=== PATIENT | female | born 1995 | race Caucasian/White ===

== ENCOUNTER 2016-12-17 22:12 | Inpatient (IN) | payer BC ==
[2016-12-17] MEDS ORDERED: Water For Irrigation,Sterile 1,000 ML Container IRR PRN (22:37)
[2016-12-17] MEDS ORDERED: Terbutaline 1 MG/ML SDV SUBCUT PRN (22:37)
[2016-12-17] MEDS ORDERED: Methylergonovine 0.2 MG/1 ML Amp IM PRN (22:37)
[2016-12-17] MEDS ORDERED: Sodium Chloride 0.9% 2.5 ML Syringe FLUSH PRN (22:37)
[2016-12-17] MEDS ORDERED: Sodium Chloride 0.9% 10 ML Syringe FLUSH PRN (22:37)
[2016-12-17] MEDS ORDERED: Carboprost Tromethamine 250 MCG/1 ML Amp IM PRN (22:37)
[2016-12-17] MEDS ORDERED: Lidocaine 1% 50 ML MDV INJECT PRN (22:37)
[2016-12-17] MEDS ORDERED: Misoprostol 200 MCG Tab PO PRN (22:37)
[2016-12-17] MEDS ORDERED: Nalbuphine 10 MG/1 ML Vial IVPUSH PRN (22:37)
[2016-12-17] MEDS ORDERED: Oxytocin/0.9 % Sodium Chloride 30 UNIT/500 ML BAG IV SCH ×2 (22:45)
[2016-12-17] MEDS: Lactated Ringers 1,000 ML IV SCH (23:05)
[2016-12-17] MEDS ORDERED: Misoprostol 25 MCG (1/4 of 100 MCG) Tab VAG ONE (23:30)
[2016-12-18] MEDS ORDERED: Misoprostol 25 MCG (1/4 of 100 MCG) Tab VAG PRN (03:30)
[2016-12-18] MEDS: Butorphanol 1 MG/ML SDV IVPUSH PRN ×2 (04:51→06:06)
[2016-12-18] MEDS: Lactated Ringers 1,000 ML IV SCH ×3 (07:12→08:50)
[2016-12-18] MEDS ORDERED: fentaNYL 100 MCG/2 ML SDV ONE (08:19)
[2016-12-18] MEDS ORDERED: Ropivacaine HCl/PF 100 ML ONE (08:20)
[2016-12-18] MEDS ORDERED: Ropivacaine 0.2% 2 MG/ML 20 ML SDV ONE (08:20)
--- NOTE | 2016-12-18 09:05 | PCM.PREANE ---
Preanesthetic Assessment - Anesthesia/Transfusion/Family Hx Anesthesia History: No Prior Anesthesia (Patient states she has never had surgery or anesthesia) Family History of Anesthesia Reaction: No Transfusion History: Prior Transfusion Without Reaction - Review of Systems General: No Symptoms Pulmonary: No Symptoms Cardiovascular: No Symptoms Gastrointestinal: No Symptoms Neurological: No Symptoms Other: Reports: None (Denies any personal or family hx of bleeding or clotting problems) - Physical Assessment Height: 1.7 m Weight: 92.986 kg ASA Class: 2 Mental Status: Alert & Oriented x3 Airway Class: Mallampati = 2 Dentition: Reports: Normal Dentition ROM/Head Extension: Full - Lab Values: Laboratory Last Values WBC 9.84 K/uL (4.0-11.0) 12/17/16 23: RBC 4.02 M/uL (4.30-5.90) L 12/17/16 23: Hgb 11.9 g/dL (12.0-16.0) L 12/17/16 23: Hct 35.5 % (36.0-46.0) L 12/17/16 23: MCV 88.3 fL (80.0-98.0) 12/17/16 23: MCH 29.6 pg (27.0-32.0) 12/17/16 23: MCHC 33.5 g/dL (31.0-37.0) 12/17/16 23: RDW Std Deviation 45.7 fl (28.0-62.0) 12/17/16 23:01 RDW Coeff of Jadyn 14 % (11.0-15.0) 12/17/16 23: Plt Count 243 K/uL (150-400) 12/17/16 23:01 MPV 10.10 fL (7.40-12.00) 12/17/16 23: Nucleated RBC % 0.0 /100WBC 12/17/16 23:01 Nucleated RBCs # 0 K/uL 12/17/16 23:01 Blood Type A POSITIVE 12/17/16 23: Antibody Screen NEGATIVE 12/17/16 23:01 - Allergies Allergies/Adverse Reactions: Allergies Allergy/AdvReac Type Severity Reaction Status Date / Time codeine Allergy Rash Verified 12/17/16 22:44 latex Allergy Swelling Verified 12/17/16 22:44 - Acknowledgements Anesthesia Type Planned: Epidural Pt an Appropriate Candidate for the Planned Anesthesia: Yes Alternatives and Risks of Anesthesia Discussed w Pt/Guardian: Yes Pt/Guardian Understands and Agrees with Anesthesia Plan: Yes PreAnesthesia Questionnaire - Past Health History Medical/Surgical History: Denies Medical/Surgical History HEENT History: Reports: None Cardiovascular History: Reports: None Respiratory History: Reports: None Gastrointestinal History: Reports: None Genitourinary History: Reports: None LINE ERECTOR History: Reports: , Spontaneous , Other (See Below) Other OB/BYN History: ovarian cysts Musculoskeletal History: Reports: None Neurological History: Reports: None Psychiatric History: Reports: None Endocrine/Metabolic History: Reports: None Hematologic History: Reports: Anemia, Iron Deficiency Immunologic History: Reports: None Oncologic (Cancer) History: Reports: None Dermatologic History: Reports: Eczema, Psoriasis Other Dermatologic History: random areas - Past Surgical History Female Surgical History: Reports: D&C - SUBSTANCE USE Smoking Status *Q: Former Smoker Tobacco Use Within Last Twelve Months: Cigarettes Days Per Week of Alcohol Use: 0 Recreational Drug Use History: No - HOME MEDS Home Medications: Home Meds Prenat Vit Comb.10/Iron/Fa/Dha [Vitafol-OB + DHA] 1 tab PO DAILY 08/17/15 [ History] Ferrous Sulfate [Iron] 12/17/16 [History] - CURRENT (IN HOUSE) MEDS Current Meds: Current Medications Butorphanol Tartrate (Stadol) 1 mg IVPUSH Q1H PRN PRN Reason: Pain Last Admin: 12/18/16 06:06 Dose: 1 mg Carboprost Tromethamine (Hemabate Ds) 250 mcg IM ASDIRECTED PRN PRN Reason: Post Hemorrhage Lactated Ringer's (Ringers, Lactated) 1,000 mls @ 150 mls/hr IV ASDIRECTED BRYNN Last Admin: 12/18/16 08:50 Dose: 150 mls/hr Oxytocin/Sodium Chloride (Oxytocin 30 Unit/500 Ml-Ns) 30 unit in 500 mls @ 999 mls/hr IV TITRATE BRYNN Oxytocin/Sodium Chloride (Oxytocin 30 Unit/500 Ml-Ns) 30 unit in 500 mls @ 2 mls/hr IV TITRATE BRYNN; 2 MUNITS/MIN PRN Reason: Protocol Lidocaine HCl (Xylocaine 1%) 50 ml INJECT .ONCE PRN PRN Reason: Laceration repair Methylergonovine Maleate (Methergine) 0.2 mg IM ASDIRECTED PRN PRN Reason: Post Hemorrhage Misoprostol (Cytotec) 200 mcg PO .ONCE PRN PRN Reason: Post Hemorrhage Misoprostol (Cytotec) 25 mcg VAG Q4H PRN PRN Reason: Cervical Ripening Nalbuphine HCl (Nubain) 10 mg IVPUSH Q1H PRN PRN Reason: Pain (severe 7-10) Sodium Chloride (Saline Flush) 10 ml FLUSH ASDIRECTED PRN PRN Reason: Keep Vein Open Sodium Chloride (Saline Flush) 2.5 ml FLUSH ASDIRECTED PRN PRN Reason: Keep Vein Open Sterile Water (Sterile Water For Irrigation) 1,000 ml IRR ASDIRECTED PRN PRN Reason: delivery Terbutaline Sulfate (Brethine) 0.25 mg SUBCUT ASDIRECTED PRN PRN Reason: Tacysystole Discontinued Medications Fentanyl (Sublimaze) Confirm Administered Dose 100 mcg .ROUTE .STK-MED ONE Stop: 12/18/16 08:20 Ropivacaine (Naropin 0.2%) Confirm Administered Dose 100 mls @ as directed .ROUTE .STK-MED ONE Stop: 12/18/16 08:21 Misoprostol (Cytotec) 25 mcg VAG ONETIME ONE Stop: 12/17/16 23:31 Last Admin: 12/17/16 23:56 Dose: 25 mcg Ropivacaine (Naropin 0.2%) Confirm Administered Dose 20 ml .ROUTE .STK-MED ONE Stop: 12/18/16 08:21
[2016-12-18] MEDS ORDERED: Ibuprofen 400 MG Tab PO PRN (12:04)
[2016-12-18] MEDS ORDERED: Bisacodyl 10 MG Supp RECTAL PRN (12:04)
[2016-12-18] MEDS ORDERED: Witch Hazel Medicated Pads 40/Jar TOP PRN (12:04)
[2016-12-18] MEDS ORDERED: Docusate Sodium 100 MG Cap PO PRN (12:04)
[2016-12-18] MEDS ORDERED: Acetaminophen 500 MG Tab PO PRN ×2 (12:04)
[2016-12-18] MEDS ORDERED: Benzocaine/Menthol 20%-0.5% Spray 78 GM Cannister TOP PRN (12:04)
[2016-12-18] MEDS ORDERED: Lanolin 100% Cream 7 GM Tube TOP PRN (12:04)
--- NOTE | 2016-12-18 18:18 | OR ---
SURGEON: Sofia Ghotra MD DATE OF PROCEDURE: 12/18/2016 PREOPERATIVE DIAGNOSES: 1. Postdates at 41 weeks and 1 day. 2. Postdates induction of labor. POSTOPERATIVE DIAGNOSES: 1. Postdates at 41 weeks and 1 day. 2. Postdates induction of labor. 3. Delivered. ANESTHESIA: Epidural. ESTIMATED BLOOD LOSS: 100 mL. DISPOSITION: Mother and baby are stable in Labor and Delivery room, bonding. COMPLICATIONS: None. FINDINGS: Female , weight pending at dictation, score of 8 and 9 at 1 and 5 minutes respectively. Grossly normal placenta with three-vessel cord. Right labial laceration. BRIEF HISTORY: Perla is a 21-year-old G2, P0, who was admitted overnight at 41 weeks' gestation for postdates induction of labor. She had an uncomplicated care. GBS, negative. She received one dose of Cytotec vaginal, 25 mcg last night and thereafter started mike every 1 to 2 minutes, progressed to 3 cm and spontaneous rupture of membranes occurred at about 3:30 a.m., on the 18 of December with clear amniotic fluid noted. She made steady progress, and at about 8:00 a.m. this morning, she received epidural for pain management. After the epidural, she was noted to have progressed to 8 cm, but then her contractions spaced out to every 4 to 5 minutes, so oxytocin was commenced for augmentation, with a maximum dose of 2 milliunits per minute, she progressed full dilatation and commenced pushing. She pushed quite well, brought the head down to a +4 station after pushing for about 30 minutes and was set up for delivery in a modified dorsal lithotomy position. PROCEDURE IN DETAIL: The patient has had a spontaneous vaginal delivery of a live female over an intact perineum, no nuchal cord, and clear amniotic fluid at delivery. Anterior and posterior shoulder and the rest of the baby were delivered without difficulty. Baby was vigorous and cried spontaneously at . The baby was delivered onto the maternal abdomen in the presence of the attendant nursery staff. Delayed cord clamping was performed and the cord was subsequently cut by the father of the baby. With delivery of the , oxytocin infusion was converted to titration for active management of third stage of labor. Cord blood and gas samples were obtained. The placenta was delivered by controlled cord traction, appeared to be complete and intact. Examination of the perineum revealed a right labial laceration which was repaired with continuous stitches using 3-0 Polysorb suture. The repair was hemostatic. Uterine massage was performed. The uterus was found to be well contracted below the umbilicus. The patient tolerated the procedure well. Sponge, instrument, and needle counts were correct at the end of the delivery. ADUMVIV / HUNTER /[id number] JOSSIE
[2016-12-18] MEDS: Ibuprofen 800 MG Tab PO PRN (19:04)
--- NOTE | 2016-12-18 19:46 | PCM48HPAN ---
Post Anesthesia Note - EVALUATION WITHIN 48HRS OF ANESTHETIC Vital Signs in Normal Range: Yes Patient Participated in Evaluation: Yes Respiratory Function Stable: Yes Airway Patent: Yes Cardiovascular Function Stable: Yes Hydration Status Stable: Yes Pain Control Satisfactory: Yes Nausea and Vomiting Control Satisfactory: Yes Mental Status Recovered: Yes
[2016-12-19] MEDS: Ibuprofen 800 MG Tab PO PRN ×2 (01:22→11:39)
--- NOTE | 2016-12-19 08:27 | PCM.PNPP ---
<Minerva Gary - Last Filed: 12/19/16 08:25> - General Info Date of Service: 12/19/16 Functional Status: Reports: Pain Controlled, Tolerating Diet, Ambulating, Urinating - Review of Systems General: Denies: Fever, Weakness, Fatigue Pulmonary: Denies: Shortness of Breath, Pleuritic Chest Pain, Cough Cardiovascular: Denies: Chest Pain, Palpitations, Dyspnea on Exertion Gastrointestinal: Denies: Abdominal Pain Genitourinary: Denies: Dysuria Psychiatric: Reports: No Symptoms - General Info Date of Service: 12/19/16 - Patient Data Vital Signs - Most Recent: Last Vital Signs Temp 36.6 C 12/19/16 04:00 Pulse 91 12/19/16 04:00 Resp 16 12/19/16 04:00 BP 127/63 12/19/16 04:00 Pulse Ox 96 12/19/16 04:00 Weight - Most Recent: 205 lb Lab Results - Last 24 Hours: Laboratory Results - last 24 hr 12/19/16 Range/Units 04:43 Hgb 10.0 L (12.0-16.0) g/dL Hct 30.2 L (36.0-46.0) % Med Orders - Current: Current Medications Acetaminophen (Tylenol Extra Strength) 500 mg PO Q4H PRN PRN Reason: Pain Acetaminophen (Tylenol Extra Strength) 1,000 mg PO Q4H PRN PRN Reason: Pain Benzocaine/Menthol (Dermoplast Pain Relief 20%-0.5% [place]) 78 gm TOP ASDIRECTED PRN PRN Reason: Perineal Comfort Measure Bisacodyl (Dulcolax) 10 mg RECTAL .ONCE PRN PRN Reason: Constipation Docusate Sodium (Colace) 100 mg PO BID PRN PRN Reason: Constipation Emollient Ointment (Lansinoh Hpa) 0 gm TOP ASDIRECTED PRN PRN Reason: Sore Nipples Last Admin: 12/19/16 01:23 Dose: 1 gm Ibuprofen (Motrin) 400 mg PO Q4H PRN PRN Reason: Pain Ibuprofen (Motrin) 800 mg PO Q6H PRN PRN Reason: Pain Last Admin: 12/19/16 01:22 Dose: 800 mg Witch Nhi (Tucks) 1 pad TOP ASDIRECTED PRN PRN Reason: comfort care Discontinued Medications Butorphanol Tartrate (Stadol) 1 mg IVPUSH Q1H PRN PRN Reason: Pain Last Admin: 12/18/16 06:06 Dose: 1 mg Carboprost Tromethamine (Hemabate Ds) 250 mcg IM ASDIRECTED PRN PRN Reason: Post Hemorrhage Fentanyl (Sublimaze) Confirm Administered Dose 100 mcg .ROUTE .STK-MED ONE Stop: 12/18/16 08:20 Last Admin: 12/19/16 04:17 Dose: Not Given Lactated Ringer's (Ringers, Lactated) 1,000 mls @ 150 mls/hr IV ASDIRECTED BRYNN Last Admin: 12/18/16 08:50 Dose: 150 mls/hr Oxytocin/Sodium Chloride (Oxytocin 30 Unit/500 Ml-Ns) 30 unit in 500 mls @ 999 mls/hr IV TITRATE BRYNN Oxytocin/Sodium Chloride (Oxytocin 30 Unit/500 Ml-Ns) 30 unit in 500 mls @ 2 mls/hr IV TITRATE BRYNN; 2 MUNITS/MIN PRN Reason: Protocol Last Admin: 12/18/16 10:26 Dose: 2 munits/min, 2 mls/hr Ropivacaine (Naropin 0.2%) Confirm Administered Dose 100 mls @ as directed .ROUTE .[employer] ONE Stop: 12/18/16 08:21 Last Admin: 12/19/16 04:17 Dose: Not Given Lidocaine HCl (Xylocaine 1%) 50 ml INJECT .ONCE PRN PRN Reason: Laceration repair Methylergonovine Maleate (Methergine) 0.2 mg IM ASDIRECTED PRN PRN Reason: Post Hemorrhage Misoprostol (Cytotec) 200 mcg PO .ONCE PRN PRN Reason: Post Hemorrhage Misoprostol (Cytotec) 25 mcg VAG ONETIME ONE Stop: 12/17/16 23:31 Last Admin: 12/17/16 23:56 Dose: 25 mcg Misoprostol (Cytotec) 25 mcg VAG Q4H PRN PRN Reason: Cervical Ripening Nalbuphine HCl (Nubain) 10 mg IVPUSH Q1H PRN PRN Reason: Pain (severe 7-10) Ropivacaine (Naropin 0.2%) Confirm Administered Dose 20 ml .ROUTE .STK-MED ONE Stop: 12/18/16 08:21 Last Admin: 12/19/16 04:17 Dose: Not Given Sodium Chloride (Saline Flush) 10 ml FLUSH ASDIRECTED PRN PRN Reason: Keep Vein Open Sodium Chloride (Saline Flush) 2.5 ml FLUSH ASDIRECTED PRN PRN Reason: Keep Vein Open Sterile Water (Sterile Water For Irrigation) 1,000 ml IRR ASDIRECTED PRN PRN Reason: delivery Terbutaline Sulfate (Brethine) 0.25 mg SUBCUT ASDIRECTED PRN PRN Reason: Tacysystole - Infant Interaction Infant Disposition, : to Nursery Support Person: Mother, Significant Other - Recovery Exam Fundal Tone: Firm Fundal Level: 1 Fingerbreadths Below Umbilicus Fundal Placement: Midline Lochia Amount: Scant Lochia Color: Rubra/Red Perineum Description: Intact, Minimal Bruising/Swelling Episiotomy/Laceration: Approximated Bladder Status: Voiding Urinary Elimination: Voided - Exam General: Alert, Oriented Lungs: Clear to Auscultation, Normal Respiratory Effort Cardiovascular: Regular Rate, Regular Rhythm GI/Abdominal Exam: Normal Bowel Sounds, Soft, Non-Tender, No Organomegaly, No Distention, No Abnormal Bruit, No Mass, Pelvis Stable Extremities: Normal Inspection, Normal Range of Motion, Non-Tender, Normal Capillary Refill, Pedal Edema (trace) - Problem List & Annotations (1) Vaginal delivery SNOMED Code(s): 212265712 Code(s): O80 - ENCOUNTER FOR FULL-TERM UNCOMPLICATED DELIVERY Status: Acute Current Visit: Yes - Problem List Review Problem List Initiated/Reviewed/Updated: Yes - Assessment Assessment:: PPD #1 from . Minimal pain and lochia. Breast feeding is going well. Discharge home today. - Plan Plan:: Discharge instructions reviewed. Nothing in the vagina for 6 weeks. Continue PNV while breast feeding. Can use OTC ibuprofen/tylenol as needed for pain. Instructed patient to call if she develops fever greater than 101 or bleeding through a large pad an hour. F/U with [facility] in 6 weeks. <Sofia Ghotra - Last Filed: 12/19/16 12:24> - Patient Data Vital Signs - Most Recent: Last Vital Signs Temp 36.3 C 12/19/16 10:45 Pulse 60 12/19/16 11:15 Resp 17 12/19/16 11:15 BP 100/60 12/19/16 11:15 Pulse Ox 98 12/19/16 11:15 Lab Results - Last 24 Hours: Laboratory Results - last 24 hr 12/19/16 Range/Units 04:43 Hgb 10.0 L (12.0-16.0) g/dL Hct 30.2 L (36.0-46.0) % Med Orders - Current: Current Medications Acetaminophen (Tylenol Extra Strength) 500 mg PO Q4H PRN PRN Reason: Pain Acetaminophen (Tylenol Extra Strength) 1,000 mg PO Q4H PRN PRN Reason: Pain Benzocaine/Menthol (Dermoplast Pain Relief 20%-0.5% [place]) 78 gm TOP ASDIRECTED PRN PRN Reason: Perineal Comfort Measure Bisacodyl (Dulcolax) 10 mg RECTAL .ONCE PRN PRN Reason: Constipation Docusate Sodium (Colace) 100 mg PO BID PRN PRN Reason: Constipation Emollient Ointment (Lansinoh Hpa) 0 gm TOP ASDIRECTED PRN PRN Reason: Sore Nipples Last Admin: 12/19/16 01:23 Dose: 1 gm Ibuprofen (Motrin) 400 mg PO Q4H PRN PRN Reason: Pain Ibuprofen (Motrin) 800 mg PO Q6H PRN PRN Reason: Pain Last Admin: 12/19/16 11:39 Dose: 800 mg Witch Nhi (Tucks) 1 pad TOP ASDIRECTED PRN PRN Reason: comfort care Discontinued Medications Butorphanol Tartrate (Stadol) 1 mg IVPUSH Q1H PRN PRN Reason: Pain Last Admin: 12/18/16 06:06 Dose: 1 mg Carboprost Tromethamine (Hemabate Ds) 250 mcg IM ASDIRECTED PRN PRN Reason: Post Hemorrhage Fentanyl (Sublimaze) Confirm Administered Dose 100 mcg .ROUTE .STK-MED ONE Stop: 12/18/16 08:20 Last Admin: 12/19/16 04:17 Dose: Not Given Lactated Ringer's (Ringers, Lactated) 1,000 mls @ 150 mls/hr IV ASDIRECTED BRYNN Last Admin: 12/18/16 08:50 Dose: 150 mls/hr Oxytocin/Sodium Chloride (Oxytocin 30 Unit/500 Ml-Ns) 30 unit in 500 mls @ 999 mls/hr IV TITRATE BRYNN Oxytocin/Sodium Chloride (Oxytocin 30 Unit/500 Ml-Ns) 30 unit in 500 mls @ 2 mls/hr IV TITRATE BRYNN; 2 MUNITS/MIN PRN Reason: Protocol Last Admin: 12/18/16 10:26 Dose: 2 munits/min, 2 mls/hr Ropivacaine (Naropin 0.2%) Confirm Administered Dose 100 mls @ as directed .ROUTE .[employer]MED ONE Stop: 12/18/16 08:21 Last Admin: 12/19/16 04:17 Dose: Not Given Lidocaine HCl (Xylocaine 1%) 50 ml INJECT .ONCE PRN PRN Reason: Laceration repair Methylergonovine Maleate (Methergine) 0.2 mg IM ASDIRECTED PRN PRN Reason: Post Hemorrhage Misoprostol (Cytotec) 200 mcg PO .ONCE PRN PRN Reason: Post Hemorrhage Misoprostol (Cytotec) 25 mcg VAG ONETIME ONE Stop: 12/17/16 23:31 Last Admin: 12/17/16 23:56 Dose: 25 mcg Misoprostol (Cytotec) 25 mcg VAG Q4H PRN PRN Reason: Cervical Ripening Nalbuphine HCl (Nubain) 10 mg IVPUSH Q1H PRN PRN Reason: Pain (severe 7-10) Ropivacaine (Naropin 0.2%) Confirm Administered Dose 20 ml .ROUTE .STK-MED ONE Stop: 12/18/16 08:21 Last Admin: 12/19/16 04:17 Dose: Not Given Sodium Chloride (Saline Flush) 10 ml FLUSH ASDIRECTED PRN PRN Reason: Keep Vein Open Sodium Chloride (Saline Flush) 2.5 ml FLUSH ASDIRECTED PRN PRN Reason: Keep Vein Open Sterile Water (Sterile Water For Irrigation) 1,000 ml IRR ASDIRECTED PRN PRN Reason: delivery Terbutaline Sulfate (Brethine) 0.25 mg SUBCUT ASDIRECTED PRN PRN Reason: Tacysystole - Interaction Feeding: Continues to Breastfeed - My Orders Last 24 Hours: My Active Orders 12/18/16 12:04 Acetaminophen [Tylenol Extra Strength] 1,000 mg PO Q4H PRN Acetaminophen [Tylenol Extra Strength] 500 mg PO Q4H PRN Benzocaine/Menthol [Dermoplast Pain Relief 20%-0.5% [place]] 78 gm TOP ASDIRECTED PRN Bisacodyl [Dulcolax] 10 mg RECTAL .ONCE PRN Docusate Sodium [Colace] 100 mg PO BID PRN Ibuprofen [Motrin] 400 mg PO Q4H PRN Ibuprofen [Motrin] 800 mg PO Q6H PRN Lanolin [Lansinoh HPA] See Dose Instructions TOP ASDIRECTED PRN Witch Nhi [Tucks] 1 pad TOP ASDIRECTED PRN Breast Pump [WOMSER] Per Unit Routine Resuscitation Status Routine 12/18/16 12:06 Patient Status [ADT] Routine May Shower [RC] ASDIRECTED Up ad Diana [RC] ASDIRECTED Vital Signs [RC] PER UNIT ROUTINE Assess Lochia [WOMSER] Per Unit Routine Assess Uterine Involution [WOMSER] Per Unit Routine Peripheral IV Discontinue [OM.PC] Routine 12/18/16 12:07 Perineal Care [OM.PC] Per Unit Routine 12/18/16 Dinner Regular Diet [DIET] - Assessment Assessment:: Patient evaluated independently: agree with above assessment - Plan Plan:: Agree with above plan.
[2016-12-19 12:17] VITALS: BP 100/60
== END 2016-12-19 14:45 | disposition home or self-care (01) | DRG 560 ==
LOC: MW.OBCHECK 22:12 → MW.OB 22:15 → MW.OBCHECK 22:37 → MW.OB 22:37 → OBSVTOIN 12-18 11:42 → MW.OB 12-18 18:04
PROVIDERS: ADMIT Obstetrics & Gynecology; ATTEND Obstetrics & Gynecology
PROC: 10E0XZZ Delivery of Products of Conception, External Approach (ICD-10-PCS; principal; 2016-12-18)
PROC: 0HQ9XZZ Repair Perineum Skin, External Approach (ICD-10-PCS; 2016-12-18)
PROC: 3E0P7GC Introduction of Other Therapeutic Substance into Female Reproductive, Via Natural or Artificial Opening (ICD-10-PCS; 2016-12-18)
DX: O48.0 Post-term pregnancy (principal); Z3A.41 41 weeks gestation of pregnancy; Z37.0 Single live birth
CPT/HCPCS: 01967; 36415; 59025; 59409; 85014; 85018; 85027; 86850; 86900; 86901; A9270-GY; J0595; J2590; J2795; J3010; J7120

== ENCOUNTER 2020-12-10 05:15 | Inpatient (IN) | payer BC ==
[2020-12-10] MEDS ORDERED: Citric Acid/Sodium Citrate Solution 30 ML Cup PO ONE ×2 (06:33→08:15)
[2020-12-10] MEDS ORDERED: Sodium Chloride 0.9% 10 ML Syringe FLUSH PRN (06:33)
[2020-12-10] MEDS ORDERED: Sodium Chloride 0.9% 2.5 ML Syringe FLUSH PRN (06:33)
[2020-12-10] MEDS ORDERED: Sodium Chloride 0.9% 10 ML SDV IV PRN (06:33)
[2020-12-10] MEDS ORDERED: Oxytocin/0.9 % Sodium Chloride 30 UNIT/500 ML BAG IV SCH ×2 (06:45→08:15)
[2020-12-10] MEDS ORDERED: Lactated Ringers 1,000 ML IV SCH (06:45)
[2020-12-10] MEDS ORDERED: fentaNYL 100 MCG/2 ML SDV ONE (07:49)
[2020-12-10] MEDS ORDERED: Morphine PF 10 MG/10 ML SDV ONE (07:50)
[2020-12-10] MEDS ORDERED: ceFAZolin 1 GM Vial ONE (08:08)
[2020-12-10] MEDS ORDERED: ceFAZolin 2 GM in Premix Bag 1 BAG IV ONE (08:15)
[2020-12-10] MEDS ORDERED: Ondansetron 4 MG/2 ML SDV ONE (08:18)
[2020-12-10] MEDS ORDERED: Oxytocin 10 Units/1 ML SDV ONE (08:18)
[2020-12-10] MEDS ORDERED: Ketorolac 30 MG/ML SDV ONE (08:18)
[2020-12-10] MEDS ORDERED: Glucose Gel 15 GM in 37.5 GM Tube ONE (08:44)
[2020-12-10] MEDS ORDERED: Misoprostol 200 MCG Tab RECTAL PRN (08:57)
[2020-12-10] MEDS ORDERED: Methylergonovine 0.2 MG/1 ML Amp IM PRN (08:57)
[2020-12-10] MEDS ORDERED: diphenhydrAMINE 50 MG/ML SDV IVPUSH PRN ×2 (08:57→09:09)
[2020-12-10] MEDS ORDERED: Lanolin 100% Cream 7 GM Tube TOP PRN (08:57)
[2020-12-10] MEDS ORDERED: Oxytocin 10 Units/1 ML SDV IM PRN (08:57)
[2020-12-10] MEDS ORDERED: Bisacodyl 10 MG Supp RECTAL PRN (08:57)
[2020-12-10] MEDS ORDERED: Tranexamic Acid 1,000 MG in Sodium Chloride 0.9% 100 ML IV PRN (08:57)
[2020-12-10] MEDS ORDERED: Acetaminophen/oxyCODONE 325-5 MG Tab PO PRN ×2 (08:57→09:09)
--- NOTE | 2020-12-10 09:00 | PCM.OPNOTE ---
- General Post-Op/Procedure Note Date of Surgery/Procedure: 12/10/20 Operative Procedure(s): Primary low transverse section Findings: Viable girl. Apgars 7 and 8. Weight 4130 grams. Pre Op Diagnosis: 25-year-old at 39 weeks 2 days dated by LMP and 9.5 week ultrasound. macrosomia. Rubella immune. GBS positive. Post-Op Diagnosis: Same Anesthesia Technique: Epidural Primary Surgeon: Nani Taveras Horizontal Boring Mill Operator: Radha Lala Fluid Replacement, Intraop: 1,000 EBL in mLs: 700 Complications: None known Condition: Stable
[2020-12-10] MEDS ORDERED: Nalbuphine 10 MG/1 ML Vial IVPUSH PRN (09:09)
[2020-12-10] MEDS ORDERED: fentaNYL 100 MCG/2 ML SDV IVPUSH PRN (09:09)
[2020-12-10] MEDS ORDERED: Ondansetron 4 MG/2 ML SDV IVPUSH PRN (09:09)
[2020-12-10] MEDS ORDERED: ePHEDrine 50 MG/ML SDV IVPUSH PRN (09:09)
--- NOTE | 2020-12-10 09:09 | PCM.POSTAN ---
POST ANESTHESIA ASSESSMENT - MENTAL STATUS Mental Status: Alert, Oriented - RESPIRATORY Respiratory Status: Respiratory Rate WNL, Airway Patent, O2 Saturation Stable - CARDIOVASCULAR CV Status: Pulse Rate WNL, Blood Pressure Stable - GASTROINTESTINAL GI Status: No Symptoms - POST OP HYDRATION Hydration Status: Adequate & Stable
--- NOTE | 2020-12-10 09:09 | PCM.PREANE ---
Preanesthetic Assessment - Anesthesia/Transfusion/Family Hx Anesthesia History: Prior Anesthesia Without Reaction Transfusion History: No Prior Transfusion(s) - Review of Systems General: No Symptoms Pulmonary: No Symptoms Cardiovascular: No Symptoms Gastrointestinal: No Symptoms Neurological: No Symptoms Other: Reports: None - Physical Assessment Height: 5 ft 8 in Weight: 206 lb ASA Class: 2 Mental Status: Alert & Oriented x3 Airway Class: Mallampati = 3 Dentition: Reports: Normal Dentition ROM/Head Extension: Full Lungs: Clear to Auscultation, Normal Respiratory Effort Cardiovascular: Regular Rate, Regular Rhythm - Allergies Allergies/Adverse Reactions: Allergies Allergy/AdvReac Type Severity Reaction Status Date / Time codeine Allergy Rash Verified 12/06/20 07:50 latex Allergy Swelling Verified 12/06/20 07:50 - Blood Blood Available: Yes Product(s) Available: PRBC, FFP, Platelets - Acknowledgements Anesthesia Type Planned: Spinal Pt an Appropriate Candidate for the Planned Anesthesia: Yes Alternatives and Risks of Anesthesia Discussed w Pt/Guardian: Yes Pt/Guardian Understands and Agrees with Anesthesia Plan: Yes PreAnesthesia Questionnaire - Past Health History Medical/Surgical History: Denies Medical/Surgical History HEENT History: Reports: Other (See Below) Other HEENT History: currently on antibiotic for sinus infection Cardiovascular History: Reports: None Respiratory History: Reports: None Gastrointestinal History: Reports: None Genitourinary History: Reports: None KARATE INSTRUCTOR History: Reports: , Spontaneous , Other (See Below) Other OB/BYN History: ovarian cysts Musculoskeletal History: Reports: None Neurological History: Reports: None Psychiatric History: Reports: Anxiety Endocrine/Metabolic History: Reports: None Hematologic History: Reports: Iron Deficiency Immunologic History: Reports: None Oncologic (Cancer) History: Reports: None Dermatologic History: Reports: Eczema, Psoriasis Other Dermatologic History: random areas - Infectious Disease History Infectious Disease History: Reports: Other (See Below) Other Infectious Disease History: unsure if had chicken pox as a child - Past Surgical History Head Surgeries/Procedures: Reports: None HEENT Surgical History: Reports: None Cardiovascular Surgical History: Reports: None Respiratory Surgical History: Reports: None GI Surgical History: Reports: None Female Surgical History: Reports: D&C Endocrine Surgical History: Reports: None Neurological Surgical History: Reports: None Musculoskeletal Surgical History: Reports: None Oncologic Surgical History: Reports: None Dermatological Surgical History: Reports: None - SUBSTANCE USE Tobacco Use Status *Q: Former Tobacco User Tobacco Use Within Last Twelve Months: No - HOME MEDS Home Medications: Home Meds Vit 10/Iron/Folic/Dha [Vitafol-OB + DHA] 1 tab PO DAILY 08/17/15 [History] Cefdinir 300 mg PO BID 12/06/20 [History] - CURRENT (IN HOUSE) MEDS Current Meds: Current Medications Bisacodyl (Bisacodyl 10 Mg Supp) 10 mg RECTAL ONETIME PRN PRN Reason: Constipation Diphenhydramine HCl (Diphenhydramine 50 Mg/Ml Sdv) 25 mg IVPUSH Q6H PRN PRN Reason: Itching or Nausea Docusate Sodium (Docusate Sodium 100 Mg Cap) 100 mg PO BID [facility] Emollient Ointment (Lanolin 100% Cream 7 Gm Tube) 0 gm TOP ASDIRECTED PRN PRN Reason: Sore Nipples Oxytocin/Sodium Chloride (Oxytocin 30 Unit/500 Ml-Ns) 30 unit in 500 mls @ 250 mls/hr IV TITRATE [facility] Lactated Ringer's (Ringers, Lactated) 1,000 mls @ 500 mls/hr IV BOLUS [facility] Last Admin: 12/10/20 05:50 Dose: 500 mls/hr Documented by: Lactated Ringer's (Ringers, Lactated) 1,000 mls @ 125 mls/hr IV ASDIRECTED [facility] Tranexamic Acid 1,000 mg/ (Sodium Chloride) 110 mls @ 660 mls/hr IV ONETIME PRN PRN Reason: Bleeding Ibuprofen (Ibuprofen 800 Mg Tab) 800 mg PO Q8H PRN PRN Reason: Cramping Ketorolac Tromethamine (Ketorolac 30 Mg/Ml Sdv) 30 mg IVPUSH Q6H [facility] Stop: 12/11/20 09:01 Methylergonovine Maleate (Methylergonovine 0.2 Mg/1 Ml Amp) 0.2 mg IM ONETIME PRN PRN Reason: Excessive Vaginal Bleeding Misoprostol (Misoprostol 200 Mcg Tab) 1,000 mcg RECTAL ONETIME PRN PRN Reason: excessive bleeding Ondansetron HCl (Ondansetron 4 Mg/2 Ml Sdv) 4 mg IVPUSH Q4H PRN PRN Reason: Nausea/Vomiting Oxycodone/Acetaminophen (Acetaminophen/Oxycodone 325-5 Mg Tab) 1 tab PO Q4H PRN PRN Reason: Pain (severe 7-10) Oxycodone/Acetaminophen (Acetaminophen/Oxycodone 325-5 Mg Tab) 2 tab PO Q4H PRN PRN Reason: Pain (severe 7-10) Oxytocin (Oxytocin 10 Units/1 Ml Sdv) 10 unit IM ASDIRECTED PRN PRN Reason: Excessive Vaginal Bleeding Simethicone (Simethicone 80 Mg Tab.Chew) 160 mg PO QID [facility] Sodium Chloride (Sodium Chloride 0.9% 10 Ml Syringe) 10 ml FLUSH ASDIRECTED PRN PRN Reason: Keep Vein Open Sodium Chloride (Sodium Chloride 0.9% 2.5 Ml Syringe) 2.5 ml FLUSH ASDIRECTED PRN PRN Reason: Keep Vein Open Sodium Chloride (Sodium Chloride 0.9% 10 Ml Sdv) 10 ml IV ASDIRECTED PRN PRN Reason: IV Use Discontinued Medications Cefazolin Sodium (Cefazolin 1 Gm Vial) Confirm Administered Dose 2 gm .ROUTE .STK-MED ONE Stop: 12/10/20 08:09 Citric Acid/Sodium Citrate (Citric Acid/Sodium Citrate Solution 30 Ml Cup) 30 ml PO ONETIME ONE Stop: 12/10/20 06:34 Dextrose (Glucose Gel 15 Gm In 37.5 Gm Tube) Confirm Administered Dose 15 gm .ROUTE .STK-MED ONE Stop: 12/10/20 08:45 Fentanyl (Fentanyl 100 Mcg/2 Ml Sdv) Confirm Administered Dose 100 mcg .ROUTE .STK-MED ONE Stop: 12/10/20 07:50 Cefazolin Sodium/Dextrose 2 gm (/ Premix) 50 mls @ 100 mls/hr IV ONETIME ONE Stop: 12/10/20 08:44 Ketorolac Tromethamine (Ketorolac 30 Mg/Ml Sdv) Confirm Administered Dose 30 mg .ROUTE .STK-MED ONE Stop: 12/10/20 08:19 Miscellaneous Medication (Phenylephrine Hcl In 0.9% Nacl 1 Mg/10 Ml Syringe) Confirm Administered Dose 1 mg .ROUTE .STK-MED ONE Stop: 12/10/20 08:19 Morphine Sulfate (Morphine Pf 10 Mg/10 Ml Sdv) Confirm Administered Dose 10 mg .ROUTE .STK-MED ONE Stop: 12/10/20 07:51 Ondansetron HCl (Ondansetron 4 Mg/2 Ml Sdv) Confirm Administered Dose 4 mg .ROUTE .STK-MED ONE Stop: 12/10/20 08:19 Oxytocin (Oxytocin 10 Units/1 Ml Sdv) Confirm Administered Dose 30 unit .ROUTE .STK-MED ONE Stop: 12/10/20 08:19
--- NOTE | 2020-12-10 12:56 | OR ---
SURGEON: Nani Taveras M.D. DATE OF PROCEDURE: 12/10/2020 PREOPERATIVE DIAGNOSES: 1. 39 and 2 weeks intrauterine . 2. macrosomia. POSTOPERATIVE DIAGNOSES: 1. 39 and 2 weeks intrauterine . 2. macrosomia. PROCEDURE: Primary low-transverse section. PRIMARY SURGEON: Nani Taveras M.D. ASSOCIATE SOFTWARE ENGINEER: Radha Lala, 4 ANESTHESIA: Spinal. ESTIMATED BLOOD LOSS: 700 mL. FLUIDS: 1000 mL of crystalloid. COMPLICATIONS: None known. FINDINGS: Viable female. score of 7 at one minute, 8 at five minutes. Weight of 4130 g. Upon delivery, intact placenta, 3-vessel cord. DISPOSITION: to nursery, mom in LDRP. INDICATIONS: The patient is a 25-year-old, G2, P1, at 39 and 2 weeks' gestation, who presents today for scheduled primary low transverse section due to suspected macrosomia. The risks of procedure were discussed. Proper consent obtained. DESCRIPTION OF PROCEDURE: The patient was taken to the operating room where she underwent spinal anesthetic, was placed in the dorsal supine position with a leftward tilt. She was prepped and draped in the usual sterile fashion. SCDs to the lower extremities. Jay to gravity. Time-out was performed. Anesthesia was tested, found to be adequate. Pfannenstiel skin incision now was created, carried down to the level of the rectus fascia which was incised in the midline, lateralized on either side sharply and bluntly. The superior aspect of fascia was tented upward, dissected sharply and bluntly from underlying muscles. In a similar fashion, this was performed on the inferior aspect of the fascia. Rectus muscle was in the midline. Peritoneum was entered. Rectus muscle and peritoneum were lateralized bluntly. Uterine position and position palpated. Self-retaining retractor now gently placed. Uterovesical reflection was visualized. Bladder flap was created sharply and bluntly. Bladder was mobilized away from lower uterine segment. Low transverse hysterotomy was performed. Uterine cavity was entered with blunt end of the scalpel. Hysterotomy was lateralized bluntly. Amniotomy performed. Clear fluid was returned. Infant's head was flexed and fundal pressure was applied. The infant's head was delivered followed by anterior shoulder, posterior shoulder, and remainder of the body without difficulty. Loose nuchal cord x1 was reduced manually. The 's oropharynx and nares were bulb suctioned. Infant was crying with good tone. After a delay, cord was clamped x2 and cut. was handed off to attending nursery staff. Cord arterial, cord venous, and cord blood sampling were obtained. The placenta was now delivered. Uterine cavity was cleared of all clot and debris. Hysterotomy was repaired using 0 Vicryl in continuous running locked fashion followed by re-imbricating layer. Posterior aspect of the uterus was inspected. No defects or hematomas found to be forming. Region was well irrigated, suction dried. Uterus was nice and firm. Uterus returned to abdominal cavity. Colonic gutters were cleared of all clot and debris, well irrigated and suction dried. Hysterotomy once again inspected, found to be hemostatic except for an area of bleeding in the midline. This was reapproximated with a [id number] suture. Hemostasis thereafter evident. Uterus was firm. Self-retaining retractor was gently removed. Bladder blade was placed. Hysterotomy was again inspected and found to be hemostatic. The bladder blade was removed. Muscle and peritoneum were now reapproximated using 0 Vicryl with inverted mattress suture technique. Anterior aspect of the muscle, posterior aspect of the fascia were closely inspected. Any areas of oozing were cauterized. The rectus fascia was reapproximated using 0 Vicryl in continuous running fashion beginning laterally on each side and meeting in the midline. Subcutaneous tissue was well irrigated, suction dried. Any areas of oozing were cauterized. Skin edges were reapproximated using 4-0 Vicryl on a Reinier needle in a subcuticular fashion followed by re-imbrication with half-inch Steri-Strips and Mastisol. Sponge, instrument, and needle counts were correct x2. The patient tolerated the procedure well overall. She will go to the PACU in stable condition, to [facility]. PAUL / HUNTER /[id number]
[2020-12-10] MEDS: Simethicone 80 MG Tab.Chew PO SCH ×2 (13:17→17:38)
[2020-12-10] MEDS: Lactated Ringers 1,000 ML IV SCH ×2 (13:24→17:41)
[2020-12-10] MEDS: Docusate Sodium 100 MG Cap PO SCH ×2 (15:08→20:47)
[2020-12-10] MEDS: Ketorolac 30 MG/ML SDV IVPUSH SCH ×2 (15:17→20:47)
[2020-12-10] MEDS: Ondansetron 4 MG/2 ML SDV IVPUSH PRN (20:09)
[2020-12-11] MEDS: Simethicone 80 MG Tab.Chew PO SCH ×4 (00:17→17:15)
[2020-12-11] MEDS: Ketorolac 30 MG/ML SDV IVPUSH SCH ×2 (04:00→10:20)
[2020-12-11] MEDS: Ondansetron 4 MG/2 ML SDV IVPUSH PRN ×2 (07:03→17:11)
[2020-12-11] MEDS: Docusate Sodium 100 MG Cap PO SCH ×2 (08:13→20:48)
--- NOTE | 2020-12-11 10:24 | PCM.PNPP ---
- General Info Date of Service: 12/11/20 Functional Status: Reports: Pain Controlled, Tolerating Diet, Ambulating, Urinating - Review of Systems General: Reports: Fatigue. Denies: Fever, Weakness Pulmonary: Denies: Shortness of Breath Cardiovascular: Denies: Chest Pain, Palpitations, Lightheadedness Gastrointestinal: Denies: Abdominal Pain, Nausea, Vomiting Genitourinary: Denies: Flank Pain Musculoskeletal: Reports: No Symptoms Skin: Reports: No Symptoms Neurological: Reports: No Symptoms Psychiatric: Reports: No Symptoms - General Info Date of Service: 12/11/20 - Patient Data Vital Signs - Most Recent: Last Vital Signs Temp 35.9 C L 12/11/20 09:00 Pulse 67 12/11/20 09:00 Resp 16 12/11/20 09:00 BP 112/68 12/11/20 09:00 Pulse Ox 97 12/11/20 09:00 Weight - Most Recent: 93.44 kg I&O - Last 24 Hours: Intake & Output 12/10/20 12/11/20 12/11/20 22:59 06:59 14:59 Intake Total 975 980 Output Total 625 2250 Balance 350 -1270 Lab Results - Last 24 Hours: Laboratory Results - last 24 hr 12/11/20 Range/Units 05:30 Hgb 8.3 L (12.0-16.0) g/dL Hct 25.0 L (36.0-46.0) % Med Orders - Current: Current Medications Bisacodyl (Bisacodyl 10 Mg Supp) 10 mg RECTAL ONETIME PRN PRN Reason: Constipation Diphenhydramine HCl (Diphenhydramine 50 Mg/Ml Sdv) 25 mg IVPUSH Q6H PRN PRN Reason: Itching or Nausea Last Admin: 12/10/20 12:01 Dose: 25 mg Documented by: Diphenhydramine HCl (Diphenhydramine 50 Mg/Ml Sdv) 12.5 mg IVPUSH Q2H PRN PRN Reason: Itching Docusate Sodium (Docusate Sodium 100 Mg Cap) 100 mg PO BID [facility] Last Admin: 12/11/20 08:13 Dose: 100 mg Documented by: Emollient Ointment (Lanolin 100% Cream 7 Gm Tube) 0 gm TOP ASDIRECTED PRN PRN Reason: Sore Nipples Ephedrine Sulfate (Ephedrine 50 Mg/Ml Sdv) 10 mg IVPUSH Q5M PRN PRN Reason: Hypotension Fentanyl (Fentanyl 100 Mcg/2 Ml Sdv) 50 mcg IVPUSH Q15M PRN PRN Reason: Pain (severe 7-10) Oxytocin/Sodium Chloride (Oxytocin 30 Unit/500 Ml-Ns) 30 unit in 500 mls @ 250 mls/hr IV TITRATE [facility] Lactated Ringer's (Ringers, Lactated) 1,000 mls @ 500 mls/hr IV BOLUS [facility] Last Admin: 12/10/20 05:50 Dose: 500 mls/hr Documented by: Lactated Ringer's (Ringers, Lactated) 1,000 mls @ 125 mls/hr IV ASDIRECTED [facility] Last Admin: 12/10/20 17:41 Dose: 125 mls/hr Documented by: Tranexamic Acid 1,000 mg/ (Sodium Chloride) 110 mls @ 660 mls/hr IV ONETIME PRN PRN Reason: Bleeding Ibuprofen (Ibuprofen 800 Mg Tab) 800 mg PO Q8H PRN PRN Reason: Cramping Methylergonovine Maleate (Methylergonovine 0.2 Mg/1 Ml Amp) 0.2 mg IM ONETIME PRN PRN Reason: Excessive Vaginal Bleeding Misoprostol (Misoprostol 200 Mcg Tab) 1,000 mcg RECTAL ONETIME PRN PRN Reason: excessive bleeding Nalbuphine HCl (Nalbuphine 10 Mg/1 Ml Vial) 5 mg IVPUSH Q30M PRN PRN Reason: Itching Ondansetron HCl (Ondansetron 4 Mg/2 Ml Sdv) 4 mg IVPUSH Q4H PRN PRN Reason: Nausea/Vomiting Last Admin: 12/11/20 07:03 Dose: 4 mg Documented by: Ondansetron HCl (Ondansetron 4 Mg/2 Ml Sdv) 4 mg IVPUSH Q6H PRN PRN Reason: Nausea Last Admin: 12/10/20 11:59 Dose: 4 mg Documented by: Oxycodone/Acetaminophen (Acetaminophen/Oxycodone 325-5 Mg Tab) 1 tab PO Q4H PRN PRN Reason: Pain (severe 7-10) Oxycodone/Acetaminophen (Acetaminophen/Oxycodone 325-5 Mg Tab) 2 tab PO Q4H PRN PRN Reason: Pain (severe 7-10) Oxycodone/Acetaminophen (Acetaminophen/Oxycodone 325-5 Mg Tab) 2 tab PO Q6H PRN PRN Reason: Pain (moderate 4-6) Oxytocin (Oxytocin 10 Units/1 Ml Sdv) 10 unit IM ASDIRECTED PRN PRN Reason: Excessive Vaginal Bleeding Simethicone (Simethicone 80 Mg Tab.Chew) 160 mg PO QID [facility] Last Admin: 12/11/20 07:03 Dose: 160 mg Documented by: Sodium Chloride (Sodium Chloride 0.9% 10 Ml Syringe) 10 ml FLUSH ASDIRECTED PRN PRN Reason: Keep Vein Open Sodium Chloride (Sodium Chloride 0.9% 2.5 Ml Syringe) 2.5 ml FLUSH ASDIRECTED PRN PRN Reason: Keep Vein Open Sodium Chloride (Sodium Chloride 0.9% 10 Ml Sdv) 10 ml IV ASDIRECTED PRN PRN Reason: IV Use Discontinued Medications Cefazolin Sodium (Cefazolin 1 Gm Vial) Confirm Administered Dose 2 gm .ROUTE .STK-MED ONE Stop: 12/10/20 08:09 Citric Acid/Sodium Citrate (Citric Acid/Sodium Citrate Solution 30 Ml Cup) 30 ml PO ONETIME ONE Stop: 12/10/20 06:34 Dextrose (Glucose Gel 15 Gm In 37.5 Gm Tube) Confirm Administered Dose 15 gm .ROUTE .STK-MED ONE Stop: 12/10/20 08:45 Fentanyl (Fentanyl 100 Mcg/2 Ml Sdv) Confirm Administered Dose 100 mcg .ROUTE .STK-MED ONE Stop: 12/10/20 07:50 Cefazolin Sodium/Dextrose 2 gm (/ Premix) 50 mls @ 100 mls/hr IV ONETIME ONE Stop: 12/10/20 08:44 Ketorolac Tromethamine (Ketorolac 30 Mg/Ml Sdv) Confirm Administered Dose 30 mg .ROUTE .STK-MED ONE Stop: 12/10/20 08:19 Ketorolac Tromethamine (Ketorolac 30 Mg/Ml Sdv) 30 mg IVPUSH Q6H [facility] Stop: 12/11/20 09:01 Last Admin: 12/11/20 04:00 Dose: 30 mg Documented by: Miscellaneous Medication (Phenylephrine Hcl In 0.9% Nacl 1 Mg/10 Ml Syringe) Confirm Administered Dose 1 mg .ROUTE .STK-MED ONE Stop: 12/10/20 08:19 Morphine Sulfate (Morphine Pf 10 Mg/10 Ml Sdv) Confirm Administered Dose 10 mg .ROUTE .STK-MED ONE Stop: 12/10/20 07:51 Ondansetron HCl (Ondansetron 4 Mg/2 Ml Sdv) Confirm Administered Dose 4 mg .ROUTE .STK-MED ONE Stop: 12/10/20 08:19 Oxytocin (Oxytocin 10 Units/1 Ml Sdv) Confirm Administered Dose 30 unit .ROUTE .STK-MED ONE Stop: 12/10/20 08:19 - Interaction Support Person: - Recovery Exam Fundal Tone: Firm Fundal Level: 2 Fingerbreadths Below Umbilicus Fundal Placement: Midline Lochia Amount: Scant Lochia Color: Rubra/Red Perineum Description: Intact, Minimal Bruising/Swelling Episiotomy/Laceration: None Bladder Status: Indwelling Catheter in Place Urinary Elimination: Indwelling Catheter - Exam General: Alert, Oriented Lungs: Normal Respiratory Effort Cardiovascular: Regular Rate, Regular Rhythm GI/Abdominal Exam: Normal Bowel Sounds, Soft Extremities: Pedal Edema (trace). No: En's Sign Skin: Warm, Dry, Intact Wound/Incisions: Healing Well, Dressing Dry and Intact Neurological: No New Focal Deficit - Problem List & Annotations (1) Status post primary low transverse section SNOMED Code(s): 676202817, 94770670, 354089142, 174045682, 954001257 Code(s): Z98.891 - HISTORY OF UTERINE SCAR FROM PREVIOUS SURGERY Status: Acute Current Visit: Yes - Problem List Review Problem List Initiated/Reviewed/Updated: Yes - My Orders Last 24 Hours: My Active Orders 12/10/20 Lunch Regular Diet [DIET] 12/10/20 12:00 Simethicone 160 mg PO QID - Assessment Assessment:: POD 1 status post Primary LTCS for macrosomia - Plan Plan:: VS are stable, patient had dizziness last night which has resolved. Continue PP cares.
[2020-12-11] MEDS: Ibuprofen 800 MG Tab PO PRN (22:39)
[2020-12-12] MEDS: Acetaminophen/oxyCODONE 325-5 MG Tab PO PRN ×3 (01:15→11:42)
[2020-12-12] MEDS: Simethicone 80 MG Tab.Chew PO SCH ×2 (01:16→06:46)
[2020-12-12] MEDS: Docusate Sodium 100 MG Cap PO SCH (08:48)
[2020-12-12 08:50] VITALS: BP 125/75; PULSE 74
--- NOTE | 2020-12-12 11:31 | PCM.PNPP ---
- General Info Date of Service: 12/12/20 Functional Status: Reports: Pain Controlled, Tolerating Diet, Ambulating, Urinating - Review of Systems General: Denies: Fever, Weakness, Fatigue Pulmonary: Denies: Shortness of Breath Cardiovascular: Denies: Chest Pain, Palpitations, Lightheadedness Gastrointestinal: Denies: Abdominal Pain, Nausea, Vomiting Genitourinary: Denies: Flank Pain Musculoskeletal: Reports: No Symptoms Skin: Reports: No Symptoms Neurological: Reports: No Symptoms Psychiatric: Reports: No Symptoms - General Info Date of Service: 12/12/20 - Patient Data Vital Signs - Most Recent: Last Vital Signs Temp 36.4 C 12/12/20 08:00 Pulse 74 12/12/20 08:00 Resp 16 12/12/20 08:00 BP 125/75 12/12/20 08:00 Pulse Ox 96 12/12/20 08:00 Weight - Most Recent: 93.44 kg Med Orders - Current: Current Medications Bisacodyl (Bisacodyl 10 Mg Supp) 10 mg RECTAL ONETIME PRN PRN Reason: Constipation Diphenhydramine HCl (Diphenhydramine 50 Mg/Ml Sdv) 25 mg IVPUSH Q6H PRN PRN Reason: Itching or Nausea Last Admin: 12/10/20 12:01 Dose: 25 mg Documented by: Diphenhydramine HCl (Diphenhydramine 50 Mg/Ml Sdv) 12.5 mg IVPUSH Q2H PRN PRN Reason: Itching Docusate Sodium (Docusate Sodium 100 Mg Cap) 100 mg PO BID [facility] Last Admin: 12/12/20 08:48 Dose: 100 mg Documented by: Emollient Ointment (Lanolin 100% Cream 7 Gm Tube) 0 gm TOP ASDIRECTED PRN PRN Reason: Sore Nipples Last Admin: 12/11/20 11:18 Dose: 1 gm Documented by: Ephedrine Sulfate (Ephedrine 50 Mg/Ml Sdv) 10 mg IVPUSH Q5M PRN PRN Reason: Hypotension Fentanyl (Fentanyl 100 Mcg/2 Ml Sdv) 50 mcg IVPUSH Q15M PRN PRN Reason: Pain (severe 7-10) Oxytocin/Sodium Chloride (Oxytocin 30 Unit/500 Ml-Ns) 30 unit in 500 mls @ 250 mls/hr IV TITRATE [facility] Lactated Ringer's (Ringers, Lactated) 1,000 mls @ 500 mls/hr IV BOLUS [facility] Last Admin: 12/10/20 05:50 Dose: 500 mls/hr Documented by: Lactated Ringer's (Ringers, Lactated) 1,000 mls @ 125 mls/hr IV ASDIRECTED [facility] Last Admin: 12/10/20 17:41 Dose: 125 mls/hr Documented by: Tranexamic Acid 1,000 mg/ (Sodium Chloride) 110 mls @ 660 mls/hr IV ONETIME PRN PRN Reason: Bleeding Ibuprofen (Ibuprofen 800 Mg Tab) 800 mg PO Q8H PRN PRN Reason: Cramping Last Admin: 12/11/20 22:39 Dose: 800 mg Documented by: Methylergonovine Maleate (Methylergonovine 0.2 Mg/1 Ml Amp) 0.2 mg IM ONETIME PRN PRN Reason: Excessive Vaginal Bleeding Misoprostol (Misoprostol 200 Mcg Tab) 1,000 mcg RECTAL ONETIME PRN PRN Reason: excessive bleeding Nalbuphine HCl (Nalbuphine 10 Mg/1 Ml Vial) 5 mg IVPUSH Q30M PRN PRN Reason: Itching Ondansetron HCl (Ondansetron 4 Mg/2 Ml Sdv) 4 mg IVPUSH Q4H PRN PRN Reason: Nausea/Vomiting Last Admin: 12/11/20 17:11 Dose: 4 mg Documented by: Ondansetron HCl (Ondansetron 4 Mg/2 Ml Sdv) 4 mg IVPUSH Q6H PRN PRN Reason: Nausea Last Admin: 12/10/20 11:59 Dose: 4 mg Documented by: Oxycodone/Acetaminophen (Acetaminophen/Oxycodone 325-5 Mg Tab) 1 tab PO Q4H PRN PRN Reason: Pain (severe 7-10) Last Admin: 12/12/20 06:46 Dose: 1 tab Documented by: Oxycodone/Acetaminophen (Acetaminophen/Oxycodone 325-5 Mg Tab) 2 tab PO Q4H PRN PRN Reason: Pain (severe 7-10) Last Admin: 12/11/20 17:16 Dose: 2 tab Documented by: Oxycodone/Acetaminophen (Acetaminophen/Oxycodone 325-5 Mg Tab) 2 tab PO Q6H PRN PRN Reason: Pain (moderate 4-6) Oxytocin (Oxytocin 10 Units/1 Ml Sdv) 10 unit IM ASDIRECTED PRN PRN Reason: Excessive Vaginal Bleeding Simethicone (Simethicone 80 Mg Tab.Chew) 160 mg PO QID [facility] Last Admin: 12/12/20 06:46 Dose: 160 mg Documented by: Sodium Chloride (Sodium Chloride 0.9% 10 Ml Syringe) 10 ml FLUSH ASDIRECTED PRN PRN Reason: Keep Vein Open Sodium Chloride (Sodium Chloride 0.9% 2.5 Ml Syringe) 2.5 ml FLUSH ASDIRECTED PRN PRN Reason: Keep Vein Open Sodium Chloride (Sodium Chloride 0.9% 10 Ml Sdv) 10 ml IV ASDIRECTED PRN PRN Reason: IV Use Discontinued Medications Cefazolin Sodium (Cefazolin 1 Gm Vial) Confirm Administered Dose 2 gm .ROUTE .STK-MED ONE Stop: 12/10/20 08:09 Citric Acid/Sodium Citrate (Citric Acid/Sodium Citrate Solution 30 Ml Cup) 30 ml PO ONETIME ONE Stop: 12/10/20 06:34 Dextrose (Glucose Gel 15 Gm In 37.5 Gm Tube) Confirm Administered Dose 15 gm .ROUTE .STK-MED ONE Stop: 12/10/20 08:45 Fentanyl (Fentanyl 100 Mcg/2 Ml Sdv) Confirm Administered Dose 100 mcg .ROUTE .STK-MED ONE Stop: 12/10/20 07:50 Cefazolin Sodium/Dextrose 2 gm (/ Premix) 50 mls @ 100 mls/hr IV ONETIME ONE Stop: 12/10/20 08:44 Ketorolac Tromethamine (Ketorolac 30 Mg/Ml Sdv) Confirm Administered Dose 30 mg .ROUTE .STK-MED ONE Stop: 12/10/20 08:19 Ketorolac Tromethamine (Ketorolac 30 Mg/Ml Sdv) 30 mg IVPUSH Q6H [facility] Stop: 12/11/20 09:01 Last Admin: 12/11/20 10:20 Dose: 30 mg Documented by: Miscellaneous Medication (Phenylephrine Hcl In 0.9% Nacl 1 Mg/10 Ml Syringe) Confirm Administered Dose 1 mg .ROUTE .STK-MED ONE Stop: 12/10/20 08:19 Morphine Sulfate (Morphine Pf 10 Mg/10 Ml Sdv) Confirm Administered Dose 10 mg .ROUTE .STK-MED ONE Stop: 12/10/20 07:51 Ondansetron HCl (Ondansetron 4 Mg/2 Ml Sdv) Confirm Administered Dose 4 mg .ROUTE .STK-MED ONE Stop: 12/10/20 08:19 Oxytocin (Oxytocin 10 Units/1 Ml Sdv) Confirm Administered Dose 30 unit .ROUTE .STK-MED ONE Stop: 12/10/20 08:19 - Interaction Support Person: - Recovery Exam Fundal Tone: Firm Fundal Level: 1 Fingerbreadths Below Umbilicus Fundal Placement: Midline Lochia Amount: Scant Lochia Color: Rubra/Red Perineum Description: Intact, Minimal Bruising/Swelling Episiotomy/Laceration: Approximated Bladder Status: Voiding Urinary Elimination: Indwelling Catheter - Exam General: Alert, Oriented Lungs: Normal Respiratory Effort Cardiovascular: Regular Rate, Regular Rhythm GI/Abdominal Exam: Normal Bowel Sounds, Soft Extremities: Pedal Edema (trace). No: En's Sign Skin: Warm, Dry, Intact Wound/Incisions: Healing Well. No: Drainage, Erythema Neurological: No New Focal Deficit Psy/Mental Status: Alert, Normal Affect, Normal Mood - Problem List & Annotations (1) Status post primary low transverse section SNOMED Code(s): 653072384, 76426614, 624492651, 532254850, 589194170 Code(s): Z98.891 - HISTORY OF UTERINE SCAR FROM PREVIOUS SURGERY Status: Acute Current Visit: Yes - Problem List Review Problem List Initiated/Reviewed/Updated: Yes - My Orders Last 24 Hours: My Active Orders 12/12/20 11:13 Ready for Discharge [RC] PER UNIT ROUTINE - Assessment Assessment:: POD 2 status post Primary LTCS for macrosomia - Plan Plan:: VS remain stable, patient feels ready to go home. Discharge instructions reviewed. Follow up at [facility] 2 and 6 weeks. Discharge to home today.
[2020-12-12] MEDS: Ibuprofen 800 MG Tab PO PRN (11:41)
--- NOTE | 2020-12-13 09:53 | PCM48HPAN ---
Post Anesthesia Note - EVALUATION WITHIN 48HRS OF ANESTHETIC Vital Signs in Normal Range: Yes Patient Participated in Evaluation: Yes Respiratory Function Stable: Yes Airway Patent: Yes Cardiovascular Function Stable: Yes Hydration Status Stable: Yes Pain Control Satisfactory: Yes Nausea and Vomiting Control Satisfactory: Yes Mental Status Recovered: Yes Vital Signs: Last Vital Signs Temp 97.6 F 12/12/20 08:00 Pulse 74 12/12/20 08:00 Resp 16 12/12/20 08:00 BP 125/75 12/12/20 08:00 Pulse Ox 96 12/12/20 08:00
== END 2020-12-12 12:12 | disposition home or self-care (01) | DRG 540 ==
LOC: MW.OB 05:15 → UNDOADMIN 05:22 → MW.OB 14:15
PROVIDERS: ADMIT Obstetrics & Gynecology; ATTEND Obstetrics & Gynecology
PROC: 10D00Z1 Extraction of Products of Conception, Low, Open Approach (ICD-10-PCS; principal; 2020-12-10)
DX: O36.63X0 Maternal care for excessive fetal growth, third trimester, not applicable or unspecified (principal); O99.824 Streptococcus B carrier state complicating childbirth; Z3A.39 39 weeks gestation of pregnancy; Z37.0 Single live birth; Z87.891 Personal history of nicotine dependence; Z88.5 Allergy status to narcotic agent; Z91.040 Latex allergy status
CPT/HCPCS: 36415; 59025; 82803; 85014; 85018; A9270-GY; J0690; J1200; J1885; J2270; J2370; J2405; J2590; J3010; J7120